=== PATIENT | female | born 1995 | race Caucasian/White ===

== ENCOUNTER 2017-10-17 15:28 | Emergency (ER) | payer BC, OTHER ==
[~2017-10-17] VITALS: Ht 170.2 cm; Wt 89.0 kg
[~2017-10-17 15:28] MED LIST: HYDR-3714 PO; MEDR150I IM
[2017-10-17 15:31] VITALS: TEMP 36.4; Ht 170.2 cm; Wt 89.0 kg
[2017-10-17] MEDS ORDERED: MoRPHine SULFATE 10 MG/ML CARP/VIAL IV STA (15:47)
[2017-10-17] MEDS ORDERED: ONDANSETRON INJ 2 MG/ML 2 ML VIAL IV STA (15:47)
[2017-10-17] MEDS ORDERED: DEXAMETHASONE INJ 10 MG in SYRINGE 0 ML IV STA (15:47)
[2017-10-17] MEDS ORDERED: KETOROLAC TROMETHAMINE 30 MG/ML VIAL IV STA (15:47)
[2017-10-17] MEDS ORDERED: MoRPHine SULFATE 4 MG/ML 1 ML CARP\\VIAL ONE (16:12)
[2017-10-17] MEDS ORDERED: DEXAMETHASONE **PF** INJ 10 MG/ML VIAL ONE (16:12)
[2017-10-17] MEDS ORDERED: HYDROmorphone INJ 0.5 MG/0.5 ML SYR IV STA (17:43)
[2017-10-17] MEDS ORDERED: CYCL10TA6 PO (18:50)
[2017-10-17] MEDS ORDERED: OXYC1TAB3 PO (18:50)
[2017-10-17] MEDS ORDERED: METH4PAK PO (18:50)
[2017-10-17 19:27] VITALS: BP 127/75; PULSE 75; O2SAT 98
--- NOTE | 2017-10-17 20:36 | EMERGENCY ROOM VISIT NOTE ---
History First contact with patient: 15:47 Chief Complaint: BACK PAIN Stated Complaint: BACK PAIN LOWER History of Present Illness The patient is a 22 year old female who presents to the Emergency Room with complaints of acute onset of lower back pain. The patient works with a kindergarten class. She was sitting on the floor, and when she attempted to get up off of the floor, experiences pain. She does not believe that she had any significant twisting injury of the back. She reports that her pain is in the central middle lower back region. She denies any pain extending into the buttocks or down the legs. The patient reports a history of herniated disks. She is currently under the management of Dr. Davidson. Her last MRI was in July, which was right before her last epidural steroid injection. The patient reports that usually she has right sciatic symptoms with her back. The patient currently rates her discomfort a 10 out of 10. Review of Systems 10 system review was performed and was negative except for pertinent positives and negatives as indicated in history of present illness Past Medical/Surgical History Medical Problems: (1) Herniated disc Surgical Problems: (1) Hx of appendectomy Family History Cancer Diabetes mellitus Hypertension Social History Smoking Status: Never Smoker Alcohol Use: occasionally Marital Status: single Housing Status: lives with family Occupation Status: student Current/Historical Medications Scheduled Methylprednisolone (Medrol Dosepak), 0 PO DAILY Scheduled PRN Cyclobenzaprine Hcl (Flexeril), 10 MG PO TID PRN for spasm Oxycodone Ir (Roxicodone Ir), 1-2 TAB PO Q4H PRN for Pain Physical Exam Vital Signs Date Time Temp Pulse Resp B/P (MAP) Pulse Ox O2 Delivery O2 Flow Rate FiO2 10/17/17 19:27 75 20 127/75 98 Room Air 10/17/17 19:27 75 20 128/75 98 10/17/17 18:16 77 20 134/87 96 Room Air 10/17/17 16:36 87 20 116/70 96 Room Air 10/17/17 15:31 36.4 94 18 154/100 99 Room Air Physical Exam CONSTITUTIONAL: Healthy and well nourished. Alert and oriented X 3 with positive affect. Patient appears in moderately severe discomfort, and has difficulty sitting because of the pain. HEENT: Normocephalic, atraumatic. Pupils equal, round and reactive. NECK: Full active range of motion without discomfort. RESPIRATORY: Clear to auscultation bilaterally with no wheezing, crackles, rhonchi or stridor. CARDIOVASCULAR: Regular rate and rhythm with no murmurs, rubs or gallops. GASTROINTESTINAL: Bowel sounds present in all quadrants. Soft and nontender to palpation. MUSCULOSKELETAL: The patient has generalized tenderness to palpation of the central lumbar spine and paraspinous muscles, right worse than left. No obvious paraspinous spasm noted. She has no focal tenderness through the SI joints. INTEGUMENTARY: No rash or other significant dermatologic conditions noted. HEMATOLOGIC: No ecchymosis or petechiae noted. NEUROLOGIC: No focal neurologic deficits noted. Bilateral feet are sensory intact. Medical Decision & Procedures Medications Administered Medications (Trade) Dose Ordered Sig/Sabrina Route Start Time Stop Time Status Last Admin Dose Admin Ketorolac Tromethamine (Toradol Inj) 30 mg NOW STAT IV 10/17/17 15:47 10/17/17 15:48 DC 10/17/17 16:19 30 MG Dexamethasone Sodium Phosphate 10 mg/Syringe 2.5 ml @ 1 mls/min ONE STAT IV 10/17/17 15:47 10/17/17 15:49 DC 10/17/17 15:47 1 MLS/MIN Ondansetron HCl (Zofran Inj) 4 mg NOW STAT IV 10/17/17 15:47 10/17/17 15:49 DC 10/17/17 16:19 4 MG Morphine Sulfate (MoRPHine SULFATE INJ) 8 mg STK-MED ONCE .ROUTE 10/17/17 16:12 10/17/17 16:13 DC 10/17/17 16:19 8 MG Hydromorphone HCl (Dilaudid Inj) 0.5 mg NOW STAT IV 10/17/17 17:43 10/17/17 17:44 DC 10/17/17 18:16 0.5 MG ED Course Patient history and physical exam were performed. Nurse's notes were reviewed. Vital signs were reviewed, showing an elevated blood pressure of 154/100. The patient appears in severe discomfort. IV access was established in order to titrate pain management. The patient was administered IV morphine, Toradol, Zofran and Decadron. Upon reevaluation at approximately 30 minutes, the patient reported pain still rated a 6 or 7 out of 10. At this point, the patient was administered IV Dilaudid which further reduced her pain to a 3 out of 10. The patient was able to ambulate and felt well enough for discharge home. The patient was instructed to follow-up with Dr. Davidson for further reevaluation and management. The patient was provided prescriptions for OxyIR 5 mg, Medrol Dosepak and Flexeril. She was given instructions on how to take these medications, along with anticipated side effects. No drinking alcohol or driving while taking these medications. She is welcome to return to the emergency department for progressively worsening pain, or if she starts to develop concerning symptoms such as bladder/bowel incontinence, saddle anesthesias or lower extremity weakness. The patient was happy with plan of care, and was discharged with her mother. Medical Decision [place] Drug Monitoring Program Search Results: patient reviewed within database, no issues identified Medication Reconcilliation Current Medication List: was personally reviewed by me Blood Pressure Screening Patient's blood pressure: Normal blood pressure Impression Primary Impression: Strain of lumbar region Departure Information Prescriptions Oxycodone Ir (Roxicodone Ir) 5 Mg Tab 1-2 TAB PO Q4H Y for Pain, #15 TAB For Initial Treatment Prov: Sarkis Bah PA 10/17/17 Cyclobenzaprine Hcl (FLEXERIL) 10 Mg Tab 10 MG PO TID Y for spasm, #15 TAB Prov: Sarkis Bah PA 10/17/17 Methylprednisolone (MEDROL DOSEPAK) 4 Mg Giorgio 0 PO DAILY, #1 PKT Prov: Sarkis Bah PA 10/17/17 Referrals No Doctor, Assigned (PCP) Patient Instructions [facility] Problem Qualifiers Primary Impression: Strain of lumbar region Encounter type: initial encounter Qualified Codes: S39.012A - Strain of muscle, fascia and tendon of lower back, initial encounter
== END 2017-10-17 19:29 | disposition home or self-care (01) ==
LOC: C.EDB 15:30 → C.EDC 19:29
DX: S39.012A Strain of muscle, fascia and tendon of lower back, initial encounter (principal); X58.XXXA Exposure to other specified factors, initial encounter